=== PATIENT | male | born 1950 | race Caucasian/White ===

== ENCOUNTER → 2018-01-24 | Outpatient (CLI) | payer OTHER, MEDICARE | LOC: BMCIMAGING 11:14 | PROVIDERS: ATTEND Physician Assistant | DX: M48.02 Spinal stenosis, cervical region (principal); Z98.1 Arthrodesis status ==

== ENCOUNTER → 2018-02-18 | Outpatient (CLI) | payer OTHER, MEDICARE | LOC: BMCIMAGING 14:43 | PROVIDERS: ATTEND Physician Assistant Surgical | DX: Z09 Encounter for follow-up examination after completed treatment for conditions other than malignant neoplasm (principal); Z98.1 Arthrodesis status; I77.89 Other specified disorders of arteries and arterioles ==

== ENCOUNTER → 2018-06-06 | Outpatient (CLI) | payer OTHER, MEDICARE | LOC: FIMAGING 07:35 | DX: M54.12 Radiculopathy, cervical region (principal); M50.30 Other cervical disc degeneration, unspecified cervical region; M48.02 Spinal stenosis, cervical region; Z98.890 Other specified postprocedural states; Z98.1 Arthrodesis status ==

== ENCOUNTER → 2018-06-23 | Outpatient (CLI) | payer OTHER, MEDICARE | LOC: BMCIMAGING 14:00 | PROVIDERS: ATTEND Physician Assistant | DX: Z09 Encounter for follow-up examination after completed treatment for conditions other than malignant neoplasm (principal); Z98.1 Arthrodesis status ==